=== PATIENT | female | born 1960 | race Hispanic/Latino ===

== ENCOUNTER 2025-05-12 06:29 | Day surgery (SDC) | payer OTHER ==
[2025-05-12] VITALS (13 sets, daily range): BP systolic 120–152; BP diastolic 57–97; PULSE 57–79; RESP 14–18; TEMP 97.2–97.9
[~2025-05-12] VITALS: Ht 152.4 cm; Wt 52.2 kg
[2025-05-12] MEDS: 0.9%NACL 1000ML 1,000 ML IV ONE (07:07)
[2025-05-12] MEDS ORDERED: DAPA10TA PO (07:17)
[2025-05-12] MEDS ORDERED: MULT-1192 PO (07:17)
[2025-05-12] MEDS ORDERED: CALC-1009 PO (07:17)
[2025-05-12] MEDS ORDERED: TELM80TA10 PO (07:17)
[2025-05-12] MEDS ORDERED: LEVO50CA5 PO (07:17)
[2025-05-12] MEDS ORDERED: PANT40TA54 PO (07:17)
[2025-05-12] MEDS ORDERED: ASPI-1005 PO (07:17)
[2025-05-12] MEDS ORDERED: ROSUVASTATIN 20MG PO (07:17)
--- NOTE | 2025-05-12 09:44 | NUR ---
POST GI INSTRUCTED PATIENT TO WALK WITH CAUTION AND IF NEEDED TO TAKE OVER THE COUNTER GAS-X TO AVOID STRAWS AND USE HEATING COMPRESSES NEEDED. PATIENT, SISTER, AND FAMILY VERBALIZED UNDERSTANDING.
== END 2025-05-12 09:55 | disposition home or self-care (01) ==
LOC: ENDO 06:29 → DAH 06:29 → ENDO 09:55
PROVIDERS: ATTEND Internal Medicine Gastroenterology
DX: R94.5 Abnormal results of liver function studies (principal); R74.8 Abnormal levels of other serum enzymes; I10 Essential (primary) hypertension; E78.00 Pure hypercholesterolemia, unspecified; K21.9 Gastro-esophageal reflux disease without esophagitis; K44.9 Diaphragmatic hernia without obstruction or gangrene; K29.80 Duodenitis without bleeding; R63.4 Abnormal weight loss; R14.0 Abdominal distension (gaseous); K64.0 First degree hemorrhoids; Z79.82 Long term (current) use of aspirin; Z79.899 Other long term (current) drug therapy
CPT/HCPCS: 43242; J7030; J2704; A4620; A4215 ×2; 43238; J3490